=== PATIENT | female | born 2000 | race Caucasian/White ===

== ENCOUNTER 2022-01-17 10:13 | Emergency (ER) | payer OTHER, SELFPAY ==
--- NOTE | ~2022-01-17 | XR_ITS ---
EXAMINATION: XR ankle LT min 3V DATE: 01/17/2022 10:33 INDICATION: Left ankle injury with lateral sided pain and swelling TECHNIQUE: Anteroposterior, oblique, mortise, and lateral views of the left ankle were obtained. COMPARISON: None. FINDINGS: Alignment is normal. No fracture. Joint spaces are well maintained. No ankle joint effusion. Soft t issue swelling about the lateral malleolus. IMPRESSION: 1. No osseous abnormality. Reviewed, dictated and finalized at location A. IMPRESSION: 1. No osseous abnormality.
[2022-01-17 10:15] VITALS: BP 154/94; PULSE 105; RESP 20; TEMP 36.6; O2SAT 97
--- NOTE | 2022-01-17 10:31 | ED.GENADULT ---
HPI - General Adult General Chief complaint: Extremity Injury, Lower Stated complaint: left ankle pain Time Seen by Provider: 01/17/22 10:17 History of Present Illness HPI narrative: 21-year-old female present to the emergency department evaluation of an injury to her left ankle. Patient states that she was walking on her driveway and stepped into the yard which was lower causing her to roll her left ankle. Patient states she did land on her right knee and did receive an abrasion. Patient denies any pain of the right knee. Patient does report pain in the left ankle with ambulation. Patient states she has had nausea and vomiting secondary to the pain. Patient does have previous history of an Achilles tendon injury and ankle sprain on the left ankle. Related Data Allergies Allergy/AdvReac Type Severity Reaction Status Date / Time amoxicillin Allergy Unknown Anaphylactic Verified 12/16/21 07:01 Shock Penicillins Allergy Unknown Swelling Verified 12/16/21 07:01 Review of Systems Review of Systems: CONSTITUTIONAL: Denies fever, chills, or sweats. EYES: Denies visual changes, redness, or discharge. ENT: Denies rhinorrhea, congestion, sore throat, or otalgia. CARDIOVASCULAR: Denies chest pain, palpitations, or edema. RESPIRATORY: Denies cough or dyspnea. GASTROINTESTINAL: Denies abdominal pain, nausea, vomiting, or diarrhea. GENITOURINARY: Denies dysuria or hematuria. SKIN: Denies rash or itching. MUSCULOSKELETAL: See HPI NEUROLOGIC: Denies headache, numbness, or weakness. PMFSH Past Medical History Medical History Acute asthma Anxiety Iron deficiency anemia Family History Family History Father Heart disease Alcoholism Mother Anxiety Hypertension Hyperlipidemia Social History Social History Smoking packs per day: 0 Smoking cigarettes per day: 0.0 Smoking status: Never smoker Second hand tobacco smoke exposure: No Alcohol intake: current Drinks per week: 1 Substance use: never Substance use type: does not use Additional occupation/education comments: [employer] Gender identity (if verbalized by the patient): Female Exam Narrative: APPEARANCE: Well appearing, no pain, no distress, well-nourished. HEAD: normocephalic, atraumatic. EYES: PERRLA/EOMI, conjunctivae clear. NOSE: Normal no drainage NECK: Supple. No adenopathy, no masses. MUSCULOSKELETAL: No proximal left lower leg tenderness to palpation. No tenderness to the foot. Ecchymosis and edema to lateral malleolus. Normal plantar and dorsiflexion although this is with some discomfort. NEURO: Alert. Cranial nerves II through XII intact. Grossly intact SKIN: Warm, dry. Normal Color Course Course Emergency Course: No acute fracture or dislocation. Patient declined the use of crutches. Patient will have follow-up with her primary care physician. Vital Signs Vital signs: Vital Signs Temperature 97.9 F 01/17/22 10:15 Pulse Rate 105 H 01/17/22 10:15 Respiratory Rate 20 01/17/22 10:15 Blood Pressure 154/94 H 01/17/22 10:15 Pulse Oximetry 97 01/17/22 10:15 Oxygen Delivery Room Air 01/17/22 10:15 Temperature 97.9 F 01/17/22 10:15 Pulse Rate 105 H 01/17/22 10:15 Respiratory Rate 20 01/17/22 10:15 Blood Pressure 154/94 H 01/17/22 10:15 Pulse Oximetry 97 01/17/22 10:15 Oxygen Delivery Room Air 01/17/22 10:15 Medical Decision Making Vital Signs Vital Signs: Vital Signs Temperature 97.9 F 01/17/22 10:15 Pulse Rate 105 H 01/17/22 10:15 Respiratory Rate 20 01/17/22 10:15 Blood Pressure 154/94 H 01/17/22 10:15 Pulse Oximetry 97 01/17/22 10:15 Oxygen Delivery Room Air 01/17/22 10:15 Temperature 97.9 F 01/17/22 10:15 Pulse Rate 105 H 01/17/22 10:15 Respiratory Rate 20 01/17/22 10:15 Bloo
== END 2022-01-17 11:17 | disposition home or self-care (01) ==
PROVIDERS: Emergency Provider Emergency Medicine; PCP Internal Medicine
DX: S93.402A Sprain of unspecified ligament of left ankle, initial encounter (principal); J45.909 Unspecified asthma, uncomplicated; D50.9 Iron deficiency anemia, unspecified
CPT/HCPCS: 73610; 99283